=== PATIENT | female | born 1965 | race Caucasian/White ===

== ENCOUNTER 2018-10-05 11:34 | Inpatient (IN) | payer MEDICARE ==
[~2018-10-05] VITALS: Ht 185.4 cm; Wt 75.3 kg
[2018-10-05 14:00] VITALS: BP 147/98
--- NOTE | 2018-10-05 14:00 | NUR ---
ADMISSION NOTES PATIENT DIRECT ADMIT. PATIENT A/O X3 , FEMALE 53Y/OLD ON DX OF GRAVELY DISABLE, UNKEMPT, MALODOROUSLY. PATIENT HAS NO ACUTE RESPIRATORY DISTRESS, V/S TAKEN BP-147/98, P-69, R-19, O2-100 RA,T-98.4, LUNGS ARE CLEAR DURING AUSCULTATION. FACE TO FACE ASSESSMENT DONE, PATIENT ANXIOUS, DEPRESS, REDIRECTABLE. SKIN ASSESSMENT DONE, PICTURE TAKEN. PATIENT DENIED SI/HI AT THIS TIME, BELONGING AND CONTRABAND CHECKED. PATIENT AMBULATORY SELF CARE. USING BATHROOM. PATIENT SIGN PAPERWORK. NEEDS ATTENDED AND ANTICIPATED. DR FLAHERTY, AND MADELINE FLEET ADMINISTRATIVE ASSISTANT AWARE OF NEW PATIENT AND MEDICATION. CONTINUED MONITORING.
[2018-10-05] MEDS ORDERED: DESV50TA PO (14:03)
[2018-10-05] MEDS ORDERED: ASPI-1165 PO (14:03)
[2018-10-05] MEDS ORDERED: FLUO20CA36 PO (14:03)
[2018-10-05] MEDS ORDERED: LAMO150T2 PO (14:03)
[2018-10-05] MEDS ORDERED: DIPH25CA83 PO (14:03)
[2018-10-05] MEDS ORDERED: MAG HYDROX/AL HYDROX/SIMETH 30 ML UDC PO PRN (14:30)
[2018-10-05] MEDS ORDERED: MAGNESIUM HYDROXIDE 30 ML UDC PO PRN (14:30)
[2018-10-05] MEDS: LORAZEPAM 0.5 MG TABLET PO PRN (15:36)
[2018-10-05] MEDS: ACETAMINOPHEN 325 MG TABLET PO PRN (15:36)
--- NOTE | 2018-10-05 15:36 | NUR ---
RN NOTES PATIENT ANXIOUS, IRRITABLE ADMINISTERED ATIVAN 1 MG PO PRN PER PATIENT REQUEST. ALSO ADMINISTERED TYLENOL 650 MG PO PRN FOR GENERALIZED PAIN 01/19, CONTINUED MONITORING. V/S TAKEN BP- 147/ 98, P-69.
[2018-10-05 16:00] VITALS: BP 148/97
[2018-10-05] MEDS: NICOTINE PATCH (14MG) 14 MG PATCH.TD24 TD SCH (18:13)
[2018-10-05 20:20] VITALS: BP 141/75
[2018-10-05] MEDS: TEMAZEPAM 7.5 MG CAPSULE PO PRN (22:03)
[2018-10-06 06:16] LABS: BASOPHILS % (AUTO) 0.6 % (0.0-2.0); EOSINOPHILS % (AUTO) 0.8 % (0.0-6.0); HEMATOCRIT 32 % (33-45); HEMOGLOBIN 10.3 g/dL (11.5-14.8); LYMPHOCYTES # (AUTO) 0.9 /CMM (0.8-4.8); LYMPHOCYTES % (AUTO) 20.3 % (20.0-44.0); MEAN CORPUSCULAR HGB CONC 33 g/dl (31.0-36.0); MEAN CORPUSCULAR VOLUME 91 fL (82-100); MONOCYTES # (AUTO) 0.3 /CMM (0.1-1.30); MONOCYTES % (AUTO) 7.4 % (2.0-12.0); NEUTROPHILS % (AUTO) 70.9 % (43.0-81.0); PLATELET COUNT (AUTO) 370 /CMM (150-450); RED BLOOD CELL COUNT(AUTO) 3.48 MIL/uL (4.0-5.2); WHITE BLOOD COUNT (AUTO) 4.2 K/uL (4.3-11.0)
[2018-10-06 06:25] LABS: ALBUMIN 2.9 g/dL (3.4-5.0); BILIRUBIN,TOTAL 0.3 mg/dL (0.2-1.0); CALCIUM, SERUM 8.3 mg/dL (8.5-10.1); CREATININE 0.7 mg/dL (0.6-1.3); MAGNESIUM 1.9 mg/dL (1.8-2.4); PHOSPHORUS 3.3 mg/dL (2.5-4.9); TOTAL PROTEIN, SERUM 5.6 g/dL (6.4-8.2)
[2018-10-06 08:00] VITALS: BP 146/81
[2018-10-06] MEDS: NICOTINE PATCH (14MG) 14 MG PATCH.TD24 TD SCH (08:09)
[2018-10-06] MEDS: ACETAMINOPHEN 325 MG TABLET PO PRN ×2 (08:10→15:38)
[2018-10-06] MEDS: LORAZEPAM 0.5 MG TABLET PO PRN ×2 (08:11→15:38)
--- NOTE | 2018-10-06 15:54 | NUR ---
SW attempted to contact pts son Simon [phone] and left voicemail for callback.
--- NOTE | 2018-10-06 15:55 | NUR ---
SW attempted to contact pts edna Apodaca [phone]; number is no longer in service.
[2018-10-06 16:00] VITALS: BP 145/85
--- NOTE | 2018-10-06 16:19 | NUR ---
VINAY was contacted by pts son Simon [phone] to inform him pt is on a hold and also to discuss discharge planning. Pts son stated that he has not had any contact with pt since August and is unable to help her. Pts son confirmed pt was evicted from apartment and also stated pt does not have an income. VINAY informed pts son that VINAY would contact [facility] to assist with housing resources.
--- NOTE | 2018-10-06 18:30 | NUR ---
medicated 2x with ativan and tylenol.
[2018-10-06 20:26] VITALS: BP 125/71
[2018-10-06] MEDS: LITHIUM CARBONATE 150 MG CAPSULE PO SCH (21:06)
[2018-10-06] MEDS: MIRTAZAPINE 15 MG TABLET PO SCH (21:06)
[2018-10-06] MEDS: HYDROCODONE/APAP 5/325MG 1 EACH TABLET PO PRN (21:59)
--- NOTE | 2018-10-06 21:59 | NUR ---
GPS-RN PATIENT C/O GENERALIZED PAIN ON A PAIN SCALE OF 7/10. ADMINISTERED NORCO 5/325MG PO ORDERED PER PT'S REQUEST. WILL CONTINUE TO MONITOR AND ASSESS FOR PAIN .
[2018-10-07] MEDS: LITHIUM CARBONATE 150 MG CAPSULE PO SCH (09:00)
[2018-10-07] MEDS: NICOTINE PATCH (14MG) 14 MG PATCH.TD24 TD SCH (09:09)
--- NOTE | 2018-10-07 09:10 | NUR ---
GPS/RN-NOTES PATIENT REFUSED LITHIUM 300MG P.O,EXPLAINED RISK AND BENEFITS BUT PATIENT GETS ANGRY STATED" I DON'T WANT IT AND THAT'S ENOUGH REASON",I JUST WANT THE NICOTINE PATCH". OFFERED X3.
--- NOTE | 2018-10-07 10:00 | NUR ---
GPS/RN-NOTES PATIENT REFUSED BODY REASSESSMENT .
--- NOTE | 2018-10-07 10:44 | NUR ---
WOUND CARE CONSULT PATIENT REFUSED WOUND CARE CONSULT AT THIS TIME. PATIENT WITH CURRENT NINA AT 22.
--- NOTE | 2018-10-07 11:30 | NUR ---
INITIAL DISCHARGE PLAN: Patient wished to be discharged to a friends home. Pt did not provide SW with friends name, address, or contact information. SW will contact [facility] Address: [place] [address] to coordinate discharge and assist with housing resources. SW will help form a safe and proper discharge in collaboration with pt, [facility], and .
--- NOTE | 2018-10-07 11:34 | NUR ---
VINAY contacted Cristino Murphy, [employer] at [facility] Address: [address], [place] [address] to coordinate transportation and provide housing resources. Per Cristino, pt will be picked up then transported to a winter custodial. Cristino, also provided VINAY with [facility] [phone] contact information to schedule an after hospital care appointment to begin intake for mental health services. VINAY will contact Cristino to schedule transportation when DC has been ordered by .
--- NOTE | 2018-10-07 11:39 | NUR ---
VINAY contacted [facility] [phone] and was asked to call on the day of pts discharge to schedule an after hospital care appointment.
--- NOTE | 2018-10-07 15:11 | NUR ---
RN-CO: Patient is verbally abusive abusive to staff. Pt stated " get me a fucking cranberry and 3 pudding now!" You fucking staff, I am a patient here you need to obey me right now!" Patient is threatening she will call 911 if not her demands are not met.
--- NOTE | 2018-10-07 15:15 | NUR ---
RN-CO: Patient threatened the social security assessor and stated " I am 6'1 and can beat your mother ra garner now." Patient is non redirectable. Refused to take Ativan per mouth. Called Dr Broussard , Dr Broussard called back with orders of Haldol 2mg IM and Ativan 1 mg IM STAT, noted.
--- NOTE | 2018-10-07 15:28 | NUR ---
VINAY received a phone call from pts ex- Dario Rodriguez [phone] requesting information. VINAY informed him that pt was on a 5250 hold for grave disability and also informed him SW was coordinating transportation with [facility]. Per , pt has up until the end of next month to evict her residence. SW informed him that pt would most likely be taken to a winter assisted as she has stated she does not have a place to live anymore and is now homeless. Pts ex- stated that he was concerned for pts dog and wanted to know of the dog was safe. SW stated that she would ask pt regarding dog.
[2018-10-07] MEDS ORDERED: LORAZEPAM INJ 2 MG/ML VIAL IM ONE (15:30)
[2018-10-07] MEDS ORDERED: HALOPERIDOL LACTATE INJ 5 MG/ML VIAL IM ONE (15:30)
[2018-10-07] MEDS: DIVALPROEX SODIUM 250 MG TABLET.DR PO SCH (21:27)
[2018-10-07] MEDS: MIRTAZAPINE 15 MG TABLET PO SCH (21:27)
--- NOTE | 2018-10-08 07:26 | NUR ---
WOUND CARE CONSULT WOUND CARE RECEIVED CONSULT FOR MULTIPLE ABDOMINAL WOUNDS. PER NURSING, PATIENT IS REFUSING TO HAVE THE DRESSINGS REMOVED. WOUND CARE WILL DEFER CONSULT AND EVALUATION TO GENERAL SURGEON AT THIS TIME. PATIENT WITH NINA AT 21, WILL SEE PRN. GENERAL SURGERY HAS BEEN NOTIFIED. Addendum: 10/08/18 at 0731 by HAFSA PORTILLO WNDNU PLEASE DISREGARD ABOVE NOTE, ENTERED ON WRONG PATIENT.
[2018-10-08 08:00] VITALS: BP 114/56
[2018-10-08] MEDS: NICOTINE PATCH (14MG) 14 MG PATCH.TD24 TD SCH (08:18)
[2018-10-08] MEDS: DIVALPROEX SODIUM 250 MG TABLET.DR PO SCH ×2 (08:19→21:03)
--- NOTE | 2018-10-08 12:54 | NUR ---
RECEIVED A CALL FROM PATIENTS RIGHT ADVOCATE CARINA AND WAS ASKING REGARDING HER. PT. CALLED THE PATIENTS RIGHT.
[2018-10-08] MEDS: HYDROCODONE/APAP 5/325MG 1 EACH TABLET PO PRN ×2 (14:04→22:17)
[2018-10-08] MEDS: LORAZEPAM 0.5 MG TABLET PO PRN (15:10)
[2018-10-08] MEDS: ACETAMINOPHEN 325 MG TABLET PO PRN (18:31)
--- NOTE | 2018-10-08 21:00 | NUR ---
TEMAZEPAM 15 MG CAP PO GIVEN FOR SLEEP
[2018-10-08] MEDS: TEMAZEPAM 7.5 MG CAPSULE PO PRN (21:03)
[2018-10-08] MEDS: MIRTAZAPINE 15 MG TABLET PO SCH (21:47)
--- NOTE | 2018-10-08 22:17 | NUR ---
C/O BACK PAIN, 7/10 ON SCALE, HYDROCODONE 5/325 MG PO GIVEN
[2018-10-09] MEDS: ACETAMINOPHEN 325 MG TABLET PO PRN ×2 (04:11→12:24)
--- NOTE | 2018-10-09 04:11 | NUR ---
tylenol 650 mg tab po given for back pain.
[2018-10-09] MEDS: LORAZEPAM 0.5 MG TABLET PO PRN ×3 (07:05→21:17)
--- NOTE | 2018-10-09 07:05 | NUR ---
ATIVAN 50 MG TAB PO GIVEN FOR ANXIETY
[2018-10-09] MEDS: DIVALPROEX SODIUM 250 MG TABLET.DR PO SCH ×2 (08:35→21:17)
[2018-10-09] MEDS: NICOTINE PATCH (14MG) 14 MG PATCH.TD24 TD SCH (08:35)
[2018-10-09] MEDS: HYDROCODONE/APAP 5/325MG 1 EACH TABLET PO PRN ×2 (09:24→17:25)
--- NOTE | 2018-10-09 18:57 | NUR ---
GPS/RN PT REMOVED THE SCAB FROM THE EXISTING ON ADMISSION SUPERFICIAL SCRATCH ON RIGHT LOWER LEG. NO BLEEDING NOTED. PT WAS TRANSFERRED TO BE UNDER CONSTANT SUPERVISION BY SITTER OF PT ASSIGNED TO Guy.
--- NOTE | 2018-10-09 19:06 | NUR ---
GPS/RN ON TRANSFER PT NOTED TO [facility]. WILL ENDORSE TO NEXT SHIFT ACCORDINGLY
[2018-10-09] MEDS: MIRTAZAPINE 15 MG TABLET PO SCH (21:17)
[2018-10-10] MEDS: TEMAZEPAM 7.5 MG CAPSULE PO PRN ×2 (01:56→23:53)
[2018-10-10] MEDS: ACETAMINOPHEN 325 MG TABLET PO PRN ×3 (05:40→20:47)
[2018-10-10 08:10] VITALS: BP 118/61
[2018-10-10] MEDS: NICOTINE PATCH (14MG) 14 MG PATCH.TD24 TD SCH (08:41)
[2018-10-10] MEDS: HYDROCODONE/APAP 5/325MG 1 EACH TABLET PO PRN ×2 (08:42→17:39)
[2018-10-10] MEDS: DIVALPROEX SODIUM 250 MG TABLET.DR PO SCH ×2 (08:42→21:39)
[2018-10-10] MEDS: LORAZEPAM 0.5 MG TABLET PO PRN (10:10)
--- NOTE | 2018-10-10 19:30 | NUR ---
GPS RN NOTE, RECEIVED PATIENT AWAKE AND IN BED, NO S/S OR COMPLAINTS OF PAIN AT THIS TIME. PATIENT IS DISPLAYING NO S/S OF APPARENT DISTRESS AT THIS TIME. PATIENT BREATHING IS UNLABORED WITH EQUAL RISE AND FALL OF THE CHEST. PATIENT IS ALERT AND ORIENTED X 3 ON ROOM AIR WITH A SPO2 OF 96%. PATIENT IS MED COMPLIANT, COOPERATIVE, ANXIOUS, DISORGANIZED, PARANOID, AND NEEDS REDIRECTION. PATIENT DENIES SUICIDE IDEATIONS AND HOMICIDAL IDEATIONS AT THIS TIME. PATIENT ASSISTED WITH TURNING AND REPOSITIONING Q 2HRS AND PRN FOR COMFORT AND CIRCULATION. PATIENT HAS NO NEEDS AT THIS TIME. PATIENT EDUCATED ON THE USE OF THE CALL HOOKER. PATIENT BED SIDE RAILS UP X 2 FOR SAFETY, BED IS LOCKED, LOW, AND I WILL CONTINUE TO MONITOR AND MAINTAIN SAFETY Q15 MIN WITH THE HELP OF STAFF.
[2018-10-10 20:00] VITALS: BP 134/76
--- NOTE | 2018-10-10 20:47 | NUR ---
GPS RN NOTE, PATIENT HAS A COMPLAINT OF CHRONIC BACK PAIN AT 3 OUT 10 ON THE PAIN SCALE AND IS REQUESTING TYLENOL AT THIS TIME. PATIENT VITAL SIGNS ARE STABLE. GAVE TYLENOL 650 MG PO Q6HR PRN ORDERED. WILL REASSESS PAIN AND I WILL CONTINUE TO MONITOR THIS PATIENT.
[2018-10-10] MEDS: MIRTAZAPINE 15 MG TABLET PO SCH (21:39)
--- NOTE | 2018-10-10 23:53 | NUR ---
GPS RN NOTE, PATIENT HAS A COMPLAINT OF NOT BEING ABLE TO SLEEP AND IS REQUESTING RESTORIL AT THIS TIME. PATIENT VITAL SIGNS ARE STABLE. GAVE RESTORIL 15 MG PO HS PRN ORDERED. WILL REASSESS FOR INSOMNIA AND I WILL CONTINUE TO MONITOR THIS PATIENT.
[2018-10-11] MEDS: LORAZEPAM 0.5 MG TABLET PO PRN ×4 (02:44→21:03)
--- NOTE | 2018-10-11 02:44 | NUR ---
GPS RN NOTE, PATIENT HAS A COMPLAINT OF FEELING ANXIOUS AND IS REQUESTING ATIVAN AT THIS TIME. PATIENT VITAL SIGNS ARE STABLE. GAVE ATIVAN 1 MG PO Q4HR PRN ORDERED. WILL REASSESS FOR ANXIETY AND I WILL CONTINUE TO MONITOR THIS PATIENT.
[2018-10-11] MEDS: HYDROCODONE/APAP 5/325MG 1 EACH TABLET PO PRN ×2 (06:26→16:31)
--- NOTE | 2018-10-11 06:26 | NUR ---
GPS RN NOTE, PATIENT HAS A COMPLAINT OF LOWER BACK PAIN AT 8 OUT OF 10 ON THE PAIN SCALE AND IS REQUESTING NORCO AT THIS TIME. PATIENT VITAL SIGNS ARE STABLE. GAVE NORCO 5-325 1 TAB PO Q8HR PRN ORDERED. WILL REASSESS PAIN AND I WILL CONTINUE TO MONITOR THIS PATIENT.
[2018-10-11 08:00] VITALS: BP 136/89
[2018-10-11] MEDS: NICOTINE PATCH (14MG) 14 MG PATCH.TD24 TD SCH (08:26)
[2018-10-11] MEDS: DIVALPROEX SODIUM 250 MG TABLET.DR PO SCH ×2 (08:27→20:32)
[2018-10-11] MEDS: ACETAMINOPHEN 325 MG TABLET PO PRN ×2 (10:01→16:58)
--- NOTE | 2018-10-11 10:57 | NUR ---
Pt filed a Bypass Writ Hearing request on 10/08/18. Unit is waiting for schedule.
--- NOTE | 2018-10-11 12:30 | NUR ---
VINAY received a phone call from pts ex- Dario Rodriguez [phone] requesting information. SW informed him that pt has requested a Bypass Writ Hearing and is waiting for hearing to occur. SW informed him that hearing has not yet been scheduled.
[2018-10-11 16:00] VITALS: BP 139/102
[2018-10-11 20:12] VITALS: BP 133/63
[2018-10-11] MEDS: MIRTAZAPINE 15 MG TABLET PO SCH (20:33)
[2018-10-11] MEDS: TEMAZEPAM 7.5 MG CAPSULE PO PRN (20:33)
[2018-10-12] MEDS: HYDROCODONE/APAP 5/325MG 1 EACH TABLET PO PRN ×3 (04:14→21:33)
[2018-10-12] MEDS: ACETAMINOPHEN 325 MG TABLET PO PRN ×4 (07:58→15:36)
[2018-10-12] MEDS: LORAZEPAM 0.5 MG TABLET PO PRN ×5 (07:58→17:58)
[2018-10-12 08:00] VITALS: BP 114/79
[2018-10-12] MEDS: DIVALPROEX SODIUM 250 MG TABLET.DR PO SCH ×2 (08:32→21:22)
[2018-10-12] MEDS: NICOTINE PATCH (14MG) 14 MG PATCH.TD24 TD SCH (08:32)
--- NOTE | 2018-10-12 08:33 | NUR ---
initially ativan and tylenol plain documented as given by keo kendrick,this is incorrect as computer logged in to her name,but both actually given by me.so now unable to scan ativan or tylenol as threw out packets.pharmacy notified([facility]).
--- NOTE | 2018-10-12 12:25 | NUR ---
GIVEN NORCO FOR GEN'L PAIN.
--- NOTE | 2018-10-12 15:37 | NUR ---
MED. AGAIN FOR GENERAL PAIN WITH TYLENOL 650 MG.
[2018-10-12 16:13] VITALS: BP 150/90
--- NOTE | 2018-10-12 17:59 | NUR ---
MEDICATED WITH ATIVAN FOR ANXIETY.
[2018-10-12 20:05] VITALS: BP 142/90
[2018-10-12] MEDS: MIRTAZAPINE 15 MG TABLET PO SCH (21:22)
--- NOTE | 2018-10-12 21:33 | NUR ---
GPS-RN PATIENT C/O LOWER BACK PAIN ON A PAIN SCALE OF 7/10. ADMINISTERED NORCO 5/325MG PO ORDERED PER PT'S REQUEST. WILL CONTINUE TO MONITOR AND ASSESS FOR PAIN .
[2018-10-13] MEDS: LORAZEPAM 0.5 MG TABLET PO PRN ×5 (00:04→20:11)
--- NOTE | 2018-10-13 00:04 | NUR ---
GPS-RN PATIENT IS ANXIOUS AND RESTLESS. ADMINISTERED ATIVAN 1MG PO ORDERED PER PT'S REQUEST. WILL CONTINUE TO MONITOR CLOSELY PT'S SAFETY AND BEHAVIOR.
[2018-10-13] MEDS: TEMAZEPAM 7.5 MG CAPSULE PO PRN (00:46)
--- NOTE | 2018-10-13 03:45 | NUR ---
VINAY contacted pts ex- Dario Rodriguez [phone] requesting information regarding pts discharge due to pt stating that her son was going to pick pt up. Per ex- pts children live with him and he stated son was not going to pick pt up. Addendum: 10/14/18 at 1042 by AIDEN MCLEAN ERROR NOTE
[2018-10-13] MEDS: HYDROCODONE/APAP 5/325MG 1 EACH TABLET PO PRN ×2 (06:47→16:50)
--- NOTE | 2018-10-13 07:12 | NUR ---
GPS RN INITIAL NOTES Report received at bedside. Patient received in bed, sleeping, easily aroused, verbally responsive. Not in any type of distress. No SOB noted or reported. Safety measures in place. Bed in locked and lowest position. Will continue to monitor and assess patient
[2018-10-13 08:00] VITALS: BP 149/87
--- NOTE | 2018-10-13 08:00 | NUR ---
RN-CO: Patient is alert and oriented x4, able to make decision for herself, self care. Patient denied suicidal and homicidal ideation. Denied auditory and visual hallucination. Denied pain and discomforts. Medically cleared for discharge by adult probation officer to be discharge.
[2018-10-13] MEDS: DIVALPROEX SODIUM 250 MG TABLET.DR PO SCH ×2 (08:09→21:18)
[2018-10-13] MEDS: NICOTINE PATCH (14MG) 14 MG PATCH.TD24 TD SCH ×2 (08:09→08:11)
--- NOTE | 2018-10-13 08:30 | NUR ---
RN-CO: DR FLAHERTY CALLED, AND ORDERED TO DISCONTINUE HOLD AND DISCHARGE PATIENT TODAY. PER PATIENT HER SON WILL PICK HER UP.
--- NOTE | 2018-10-13 08:45 | NUR ---
GPS RN - REFUSAL NOTES Patient is alert and oriented x3, verbally responsive. Aware of discharge plan today. Patient refused nicotine patch. Explained risks vs benefits x3 but continues to refuse. Will continue to monitor and assess patient Addendum: 10/13/18 at 1301 by DIEGO HIDALGO RN CORRECTION: Patient is alert and oriented x4m, Verbally responsive.
--- NOTE | 2018-10-13 09:00 | NUR ---
RN-CO: AIDEN FUNERAL HOME DIRECTOR SPOKE WITH THE SON , BUT SON DENIED THAT HE CAN PICK HER UP. FUNERAL HOME DIRECTOR TALKED TO PATIENT IF SHE CAN SIGN VOLUNTARY SO WE CAN PROVIDE A TRANSPORTATION TO [place]. PATIENT REFUSED TO SIGN THE VOLUNTARY FORM AND STATED " WHY ARE YOU COORDINATING WITH MY SON!" GIVE ME MY VALUABLES AND I WILL GO!"
--- NOTE | 2018-10-13 10:11 | NUR ---
VINAY contacted pts son Simon [phone] to confirm if he would be picking pt up from hospital due to pt stating he would. Per son, he stated he [place] in a different state and is unable to assist with pts discharge.
--- NOTE | 2018-10-13 10:30 | NUR ---
GPS RN NOTES Attempted to explain voluntary form and have patient sign but patient refused. Will continue to try.
--- NOTE | 2018-10-13 10:45 | NUR ---
RN-CO: SPOKE WITH THE ATTY OF PUBLIC DEFENDERS OFFICE "DEBBY GOMES" AND WE NOTIFIED HIM THAT DR FLAHERTY ORDERED TO DISCONTINUE THE HOLD AND DISCHARGE THE PATIENT TODAY. HOWEVER IT WILL TAKE US 24 HOURS TO ARRANGE TRANSPORTATION TO THE PATIENT TO GO TO [facility]. WE CALLED DR FLAHERTY AND MD ADVISED TO ASK THE PATIENT TO SIGN VOLUNTARY SO SHE CAN STAY UNTIL THE NEXT DAY. PATIENT REFUSED TO SIGN THE VOLUNTARY FORM. ATTDaisy GOMES THEN STATED WE CAN ASK THE PATIENT TO LEAVE THE HOSPITAL.
--- NOTE | 2018-10-13 11:35 | NUR ---
GPS RN NOTES Belongings from safe returned to patient. Patient signed belongings form, voluntary form, discharge/exit care papers provided and signed. Discharge instructions provided: verbalized understanding. All questions and concerns addressed.
--- NOTE | 2018-10-13 11:39 | NUR ---
RN-CO: EXPLAINED AGAIN THE BENEFITS OF SIGNING VOLUNTARY STAYING, PATIENT SIGNED.
--- NOTE | 2018-10-13 11:55 | NUR ---
GPS DIE CASTING MACHINE OPERATOR NOTES Patient is cleared for discharge by MD and Psych MD. Alert and oriented x4, verbally responsive, stable in room air. Discharge instructions provided to patient: verbalized understanding with discharge papers/form signed by patient. Belongings checked and returned to patient: Belongings form signed. All contraband removed and stored in patient's locker (located in patient's room) until patient leaves the premises or escorted out to hospital lobby. Patient signed voluntary form and stated, "my son is on his way to pick me up. He's just stuck in traffic." Complained of pain with help of pain mgmt. No SOB noted. Patient breathing is unlabored with equal rise and fall of the chest. No signs and symptoms of any type of distress. Denies any SI or HI plans. Skin body assessment refused/Patient refused photos to be taken. Will continue to try to convince patient to take updated photos of skin issues. Safety measures in place. Bed in locked and lowest position with helm within reach. Will continue to monitor and assess patient.
[2018-10-13] MEDS: ACETAMINOPHEN 325 MG TABLET PO PRN ×2 (12:42→20:21)
--- NOTE | 2018-10-13 13:02 | NUR ---
GPS RN PRN NOTES Patient requested for tylenol for generalized pain. Pain mgmt given.
--- NOTE | 2018-10-13 14:14 | NUR ---
VINAY contacted Cristino Murphy, Millinery Copyist at [facility] Address: [address], [place] [address] to coordinate transportation for pts discharge tomorrow 10/14/17. Cristino arias pt is scheduled for shredder picker at 10:00am.
--- NOTE | 2018-10-13 14:37 | NUR ---
GPS RN PRN NOTES Patient is getting anxious and requested for ativan. Will continue to monitor and assess patient
--- NOTE | 2018-10-13 15:45 | NUR ---
SW contacted pts ex- Dario Rodriguez [phone] requesting information regarding pts discharge due to pt stating that her son was going to pick pt up. Per ex- pts children live with him and he stated son was not going to pick pt up.
[2018-10-13 16:00] VITALS: BP 125/85
--- NOTE | 2018-10-13 18:22 | NUR ---
RN-CO: PATIENT SIGNED VOLUNTARILY , THEREFORE DR FLAHERTY ORDERED TO CANCEL DISCHARGE TODAY AND DISCHARGE HER TOMORROW.
--- NOTE | 2018-10-13 18:30 | NUR ---
GPS RN CLOSING NOTES Patient stayed mostly in activity room. Currently in bed, dozing intermittently, easily aroused. No facial grimacing or moaning noted. Complained of pain with help of pain mgmt. No SOB/labored breathing noted. Not in any apparent distress. All needs provided and met. Safety measures implemented and observed. Kept clean and dry. Bed in locked and lowest position with bed alarm on and call helm within reach. Continue on q15 minutes monitoring for safety and behavioral monitoring. Will endorse to oncoming shift nurse
[2018-10-13 20:00] VITALS: BP 139/82
--- NOTE | 2018-10-13 20:11 | NUR ---
GPS RN PRN NOTES Patient c/o feeling anxious and requested for Ativan. Will continue to monitor and assess patient's behavior and safety.
[2018-10-13] MEDS: MIRTAZAPINE 15 MG TABLET PO SCH (21:17)
--- NOTE | 2018-10-13 23:15 | NUR ---
GPS CARLOS PRN NOTES Patient c/o feeling anxious and requested for Klonopin. Administered Klonopin 0.5mg po as ordered. Will continue to monitor and assess patient's behavior and safety. Addendum: 10/14/18 at 0226 by DENI DIAMOND RN Wrong patient
[2018-10-14] MEDS: HYDROCODONE/APAP 5/325MG 1 EACH TABLET PO PRN (02:12)
--- NOTE | 2018-10-14 02:14 | NUR ---
GPS RN PRN NOTES PATIENT C/O LOWER BACK PAIN ON A PAIN SCALE OF 7/10. ADMINISTERED NORCO 5/325MG PO ORDERED PER PT'S REQUEST. WILL CONTINUE TO MONITOR AND ASSESS FOR PAIN .
[2018-10-14] MEDS: LORAZEPAM 0.5 MG TABLET PO PRN (05:43)
--- NOTE | 2018-10-14 05:43 | NUR ---
GPS RN PRN NOTES Patient c/o feeling anxious and requested for Ativan. Administered Ativan 1mg PO as ordered. Will continue to monitor closely patient's behavior and safety.
[2018-10-14 08:00] VITALS: BP 134/66
[2018-10-14] MEDS: DIVALPROEX SODIUM 250 MG TABLET.DR PO SCH (08:19)
[2018-10-14] MEDS: NICOTINE PATCH (14MG) 14 MG PATCH.TD24 TD SCH (08:19)
[2018-10-14] MEDS: ACETAMINOPHEN 325 MG TABLET PO PRN (08:19)
--- NOTE | 2018-10-14 08:30 | NUR ---
VINAY contacted [facility] [phone] to schedule an after care appointment. Per Tereza, pt needs to be present to schedule an appointment. VINAY will call back with pt to schedule appointment.
--- NOTE | 2018-10-14 09:00 | NUR ---
VINAY attempted to have pt schedule follow-up appointment with [facility] [phone], pt refused and stated to VINAY, "get the fuck out of my business."
--- NOTE | 2018-10-14 10:48 | NUR ---
DISCHARGE NOTE: Pt was discharged at 10:45am via [facility] vehicle home to [address] [place] [id number]. Pts son Simon [phone] has been notified and agrees with discharge plan. Per pts ex- Dario pt has until October 25, 2017 to evict home. Pts mood was agitated with blunted affect and was threatening to tamara to the hospital for being held against her wishes. Pt denied suicidal/homicidal ideations and denied visual/auditory hallucinations. Pt was given a referral to contact [facility] [phone] to schedule an after care follow-up appointment. Pt was also given a referral for [facility] Address: [address], [place] [address] and for Thelma Cuenca NP, Address: [address] [place] [address] . For smoking cessation, patient was referred to the [employer] and [employer] [id number]-XMQ. Pt will also participate in a telephone meeting with [facility] [phone] on Monday October 15, 2018 at 8:00am. Addendum: 10/15/18 at 0846 by AIDEN MCLEAN For pts substance use, pt was given a referral to [facility] Address: [address] [place] [address] where she will present on Tuesday October 15, 2013, at 9:00am for an intake. Additional resources include, [facility] Address: [place] [address] [address] [facility] Address: [address] [place] [address], [facility], [place] [address] .
--- NOTE | 2018-10-14 10:52 | NUR ---
GPS IBM BPM ARCHITECT NOTE: PT DISCHARGE TO [facility] VEHICLE HOME TO [address] [place] [address]. PT IN STABLE CONDITION , VSS, DENIES SI/HI , COMPLIANT WITH MEDICATIONS AND TX . ALL BELONGINGS AND VALUABLES RETURNED TO PT, PT REFUSED SKIN ASSESSMENT AND REFUSED TO SIGN ALL DISCHARGE PAPERS.T.O. ORDER FROM DR REYNOLD ERICKSON PT HOME WITH PRESCRIPTION EXPLAIN AND GIVEN TO PT , NO MEDICAL RX GIVEN ME MD .
--- NOTE | 2018-10-29 15:00 | NUR ---
15 DAY SUBSTANCE ABUSE FOLLOW-UP: unable to follow up due to contact number no longer valid.
== END 2018-10-14 10:45 | disposition home or self-care (01) | DRG 885 ==
LOC: GPS 13:41
PROVIDERS: ADMIT Psychiatry & Neurology Psychiatry; ATTEND Psychiatry & Neurology Psychiatry
DX: F31.30 Bipolar disorder, current episode depressed, mild or moderate severity, unspecified (principal); E44.0 Moderate protein-calorie malnutrition; D63.8 Anemia in other chronic diseases classified elsewhere; I10 Essential (primary) hypertension; G89.29 Other chronic pain; E88.09 Other disorders of plasma-protein metabolism, not elsewhere classified; M62.50 Muscle wasting and atrophy, not elsewhere classified, unspecified site; Z73.6 Limitation of activities due to disability; Z68.21 Body mass index [BMI] 21.0-21.9, adult
CPT/HCPCS: 36415; 80053-TC; 80061-TC; 83735-TC; 84100-TC; 85025-TC; 87081-TC; J1630; J2060